=== PATIENT | female | born 1950 | race Caucasian/White ===

== ENCOUNTER 2016-12-06 09:11 | Outpatient (CLI) | payer OTHER, BC ==
[~2016-12-06 09:11] MED LIST: ALPRAZOLAM0.25 MG PO; IBUPROFEN400 MG PO; LISINOPRIL10 MG PO; NORCO1 TA1 PO; OMEPRAZOLE40 MG PO
--- NOTE | 2016-12-06 11:02 | DIAGNOSTIC IMAGING REPORT ---
PROCEDURE: MG BILATERAL SCREENING W/CAD INDICATION: SCREENING TECHNIQUE: Bilateral CC and MLO digital views. COMPARISON: Compared to 01/22/2015, 07/02/2013, and 08/19/2009. FINDINGS: Computer-aided detection applied. Moderately dense with a few dystrophic calcifications. No change. IMPRESSION: 1. Negative mammogram. RESULT CODE: 1- Negative. A. A negative report should not delay biopsy if a dominant or clinically suspicious mass is present. 10-15% of cancers are not identified by x-ray. B. A negative report may reinforce clinical impression. C. Adenosis and dense breasts may obscure an underlying neoplasm. D. False positive reports average 6-10%. E.. A yearly screening mammogram is recommended. A reminder letter will be scheduled.
== END 2016-12-06 23:00 ==
LOC: MAM SRH 09:11
DX: Z12.31 Encounter for screening mammogram for malignant neoplasm of breast (principal)

== ENCOUNTER 2017-01-04 16:10 | Outpatient (CLI) | payer OTHER, BC ==
--- NOTE | 2017-01-04 17:30 | DIAGNOSTIC IMAGING REPORT ---
PROCEDURE: XR HIP BILATERAL INDICATION: TROCHANTERIC BURSITIS, BILATERAL PAIN TECHNIQUE: AP view of the pelvis and hips with lateral views of the bilateral hips. COMPARISON: None. FINDINGS: RIGHT HIP: Normal hip joint space. No fracture or dislocation. LEFT HIP: Normal hip joint space. No fracture or dislocation. AP PELVIS: No suspicious osseous lesions. Soft tissues are unremarkable. IMPRESSION: 1. Negative bilateral hips. 2. Results discussed with Dr. Hernandez
--- NOTE | 2017-01-04 17:35 | DIAGNOSTIC IMAGING REPORT ---
PROCEDURE: XR LUMBAR SPINE 2 OR 3 VIEWS INDICATION: TRONCHANTERIC BURSITIS, BILATERAL PAIN TECHNIQUE: Three views. COMPARISON: None. FINDINGS: Rotational scoliosis. Grade 1 L2-3 retrolisthesis, L3-4 anterolisthesis and L4-5 retrolisthesis. There is no fracture. Mild L3-4 and severe L5-S1 disc space narrowing. Mild spur formation. Soft tissues are normal. IMPRESSION: 1. Grade 1 L2-3 retrolisthesis, L3-4 anterolisthesis and L4-5 retrolisthesis 2. Rotational scoliosis 3. Mild L3-4 and severe L5-S1 disc space narrowing 4. Results discussed with Dr. Hernandez
== END 2017-01-04 23:00 ==
LOC: XR SRH 16:10
DX: M43.16 Spondylolisthesis, lumbar region (principal); M51.37 Other intervertebral disc degeneration, lumbosacral region; M41.86 Other forms of scoliosis, lumbar region; M70.60 Trochanteric bursitis, unspecified hip